=== PATIENT | male | born 1940 | race Caucasian/White ===

== ENCOUNTER 2018-02-18 10:19 | Emergency (ER) | payer OTHER ==
[~2018-02-18] VITALS: Ht 162.6 cm; Wt 83.0 kg
[~2018-02-18 10:19] MED LIST: AMLODIPINE BESY PO; AUGMENTIN 875 M1 TAB PO; CARVEDILOL12.5 M1 PO; CARVEDILOL12.5 MG PO; CEFUROXIME250 M1 PO; COREG12.5 M1 PO; DOFETILIDE500 MCG PO; ELIQUIS2.5 M1 PO; ELIQUIS5 M1 PO; ELIQUIS5 MG PO; EXFORGE 10-3201 EACH PO; FUROSEMIDE20 M1 PO; PREDNISONE10 M2 PO; SPIRIVA 18 MCG18 MCG INH; SPIRIVA18 MCG INH; VYTORIN 10-401 EACH PO
[2018-02-18] MEDS ORDERED: ANORO ELLIPTA1 EACH (12:42)
--- NOTE | 2018-02-18 15:11 | CT SCAN REPORT ---
EXAMINATION: CT ABDOMEN AND PELVIS WITHOUT CONTRAST CLINICAL INFORMATION: Left lower back pain radiating to the left groin. COMPARISON: 11/07/2015. TECHNIQUE: Multidetector volumetric imaging was performed from the superior aspect of the liver through the pubic symphysis. Sagittal and coronal reformatted images were obtained on the technologist's workstation. DLP: 584 mGy-cm FINDINGS: LUNG BASES: Centrilobular emphysema seen at the lung bases. Partial visualization of cardiac pacer leads. LIVER, GALLBLADDER, AND BILIARY TREE: The liver is normal in size, shape, and attenuation. No focal hepatic lesion or biliary ductal dilatation is present. The gallbladder is unremarkable with no evidence of radiopaque gallstones, gallbladder wall thickening, or obvious pericholecystic inflammatory changes. PANCREAS: Unremarkable. SPLEEN: Unremarkable. ADRENAL GLANDS: Nodular thickening of both adrenal glands. 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 KIDNEYS AND URETERS: The kidneys are normal in size, shape, and attenuation. No hydronephrosis or hydroureter. No perinephric stranding. There are multiple bilateral renal cysts which appear exophytic. 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 There is a left lower pole 0.5 cm nonobstructing renal calculus, 11 cm from the posterior axillary line. BLADDER: Unremarkable. GASTROINTESTINAL TRACT: The stomach is decompressed. The small bowel is normal in caliber. No obstruction. Colonic diverticulosis without diverticulitis. No wall thickening or inflammation. ABDOMINAL WALL: Small fat-containing inguinal hernias bilaterally. LYMPH NODES: Normal. VASCULAR: Normal caliber aorta. Moderate atherosclerotic calcifications. PELVIC VISCERA: The prostate and seminal vesicles are unremarkable. OSSEOUS STRUCTURES: No acute or suspicious osseous abnormality. Multilevel degenerative changes of the spine. Disc space narrowing greatest at L5-S1. Vacuum disc phenomenon at L3-L4 and L5-S1. Multilevel endplate osteophytes present Degenerative changes of the right hip. IMPRESSION: No acute findings of the abdomen or pelvis. No hydronephrosis. Nonobstructing left renal calculus. Multiple bilateral renal cysts. Colonic diverticulosis without diverticulitis. Moderate degenerative changes of the lumbar spine.
[2018-02-18 15:13] VITALS: BP 138/84
[2018-02-18] MEDS ORDERED: BACLOFEN10 M1 PO (16:26)
[2018-02-18] MEDS ORDERED: ACETAMINOPHEN-1 EAC3 PO (16:26)
--- NOTE | 2018-02-18 16:27 | ED NECK/BACK PAIN COMPLAINT ---
History of Present Illness General Chief Complaint: General Adult Stated Complaint: L GROIN PAIN Source: patient, family, old records Exam Limitations: no limitations Vital Signs & Intake/Output Vital Signs & Intake/Output Vital Signs Date Time Temp Pulse Resp B/P B/P Pulse O2 O2 Flow FiO2 Mean Ox Delivery Rate 02/18 1513 97.5 71 18 138/84 96 Room Air 02/18 1354 98.0 65 18 131/76 95 Room Air 02/18 1025 97.5 65 15 149/89 95 Room Air Room Air Allergies Coded Allergies: No Known Allergies (02/18/18) Reconcile Medications Acetaminophen With Codeine (Acetaminophen-Cod #3 Tablet) 300 MG-30 MG TABLET 1 -2 TAB PO Q6P PRN severe pain Amlodipine/Valsartan (Exforge 10-320 MG Tablet) 10 MG-320 MG TABLET 1 TAB PO DAILY HTN (Reported) Apixaban (Eliquis) 2.5 MG TABLET 1 TAB PO AM A.FIB (Reported) Apixaban (Eliquis) 5 MG TABLET 1 TAB PO QPM A.FIB (Reported) Baclofen 10 MG TABLET 1 TAB PO TIDPRN PRN muscle spasm/strain Carvedilol (Coreg) 12.5 MG TABLET 1 TAB PO BID BID (Reported) Dofetilide 500 MCG CAPSULE 1 CAP PO BID VT (Reported) Ezetimibe/Simvastatin (Vytorin 10-40 MG Tablet) 10 MG-40 MG TABLET 1 TAB PO DAILY Heart health (Reported) Furosemide 20 MG TABLET 1 TAB PO DAILY CHF (Reported) Umeclidinium Brm/Vilanterol Tr (Anoro Ellipta 62.5-25 Mcg INH) 62.5 MCG-25 MCG/ ACTUATION BLST.W.DEV COPD (Reported) Triage Note: PT TO ED FOR C/C OF L GROIN PAIN THAT RADIATES DOWN LEFT LEG THAT STARTED YESTERDAY WITH SOME NUMBNESS IN LEG WELL. REPORTS HE HAS A BAKERS CYST BEHIND LEFT KNEE X YEARS AND IT INTERMITTENTLY GETS BETTER AND WORSE. DENIES G/U S/S. TOOK 2 MOTRIN BEFORE ARRIVAL. Triage Nurses Notes Reviewed? yes Onset: Just prior to arrival Duration: hour(s):, constant, continues in ED Timing: recent history Quality/Severity: severe, radiation, sharpness Location: lumbar spine, paraspinous muscles Radiation: buttocks, upper legs Context: turning/bending Method of Injury: twisted Loss of Consciousness: no loss of consciousness Modifying Factors: immobilization, pain medication, rest Associated Symptoms: muscle spasm, trouble walking HPI: Several hours prior to admission patient awoke trying to get out of bed developing left low back pain radiating to his inguinal area upper like. The pain is sharp constant worse with movement turning bending. Reports having neck pain before but never this bad with radiation. He denies fever chills nausea vomiting diarrhea abdominal pain chest pain shortness breath headache dysuria rash bleeding change in motor sensory function change in bowel bladder habit. Past History Travel History Traveled to [place] past 21 day No Medical History Any Pertinent Medical History? see below for history Neurological: NONE EENT: NONE Cardiovascular: AFIB, PACER/DEFIB LCW Respiratory: bronchitis, COPD, emphysema Gastrointestinal: NONE Hepatic: NONE Renal: NONE Musculoskeletal: osteoarthritis Psychiatric: NONE Endocrine: NONE Blood Disorders: NONE Cancer(s): POSSIBLE LUNG CA? 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 No Review of Systems Review of Systems Constitutional: Reports: no symptoms. Eyes: Reports: no symptoms. Ears, Nose, Throat, Mouth: Reports: no symptoms. Respiratory: Reports: no symptoms. Cardiovascular: Reports: no symptoms. Gastrointestinal/Abdominal: Reports: no symptoms. Musculoskeletal: Reports: see HPI, back pain, muscle stiffness. Skin: Reports: no symptoms. Neurological/Psychological: Reports: no symptoms. All Other Systems: Reviewed and Negative Physical Exam Physical Exam General Appearance: well developed/nourished, alert, awake, anxious, moderate distress, obese Head: atraumatic, normal appearance Eyes: Bilateral: normal appearance, PERRL, EOMI. Ears, Nose, Throat, Mouth: hearing grossly normal, moist mucous membrane Neck: normal inspection, supple, full range of motion, normal alignment Respiratory: normal breath sounds, chest non-tender, no respiratory distress, quiet respiration, lungs clear Cardiovascular: regular rate/rhythm, normal peripheral pulses, norml femoral pulses equa Peripheral Pulses: 4+ carotid (R), 4+ carotid (L) Gastrointestinal: normal bowel sounds, soft, non-tender, no organomegaly Back: normal inspection, normal range of motion, no vertebral tenderness Extremities: non-tender, normal range of motion, no ligament instability Straight Leg Raising: Right: Pain at ____ degrees (10). Left: Pain at ____ degrees (10). Sensory: Medial Le: L4R, L4L. Top of Foot: 2: L5R, L5L. Sole of Foot: 2: SIR, MICHELLE. Motor: Deficit L4 Right: No Deficit L4 Left: No Deficit L5 Right: No Deficit S1 Right: No Deficit S1 Right: No DTR: Deficit L4 Left: No Deficit L4 Right: No Deficit S1 Left: No Deficit S1 Right: No Patellar: 3: L4 Right, L4 Left. Neurologic/Psych: no motor/sensory deficits, awake, alert, oriented x 3, normal gait (with walker), normal mood/affect, dog boarder II-XII nml as tested Skin: intact, normal color, warm/dry Core Measures CVA/TIA Diagnosis: No Progress Differential Diagnosis: cauda equina syn, herniated disc, myofascial strain, pyelo/UTI, T/L spine injury Plan of Care: Orders Procedure Date/time Status URINALYSIS 02/18 1226 Complete Laboratory Tests 02/18/18 1251: Urine Color YEL, Urine Clarity HAZY H, Urine pH 6.0, Ur Specific [place] 1.025, Urine Protein 100 H, Urine Ketones NEG, Urine Nitrite NEG, Urine Bilirubin NEG, Urine Urobilinogen 0.2, Ur Leukocyte Esterase NEG, Ur Microscopic SEDIMENT EXAMINED, Urine RBC 1-3, Urine WBC 1-3 H, Ur Epithelial Cells OCCAS, Urine Hemoglobin TRACE-INTACT H, Urine Glucose NEG Diagnostic Imaging: Viewed by Me: CT Scan. Discussed w/RAD: CT Scan. Radiology Impression: 1. No acute findings along the urinary tracts. No hydronephrosis or perinephric edema. A 0.3 cm nonobstructing calculus is present within the upper pole of the left kidney. 2. Atherosclerotic disease of the abdominal aorta without aneurysm. 3. Diffuse osteoporosis. The severity of the L2 compression fracture is unchanged compared to 03/08/2016. A new compression fracture of the L1 vertebral body exhibits approximately 35% anterior height reduction. The lumbar vertebral alignment is maintained. 4. Colonic diverticulosis without diverticulitis. 5. Centrilobular emphysema within the visualized lung bases. Departure Departure Time of Disposition: 1622 Disposition: HOME OR SELF CARE Condition: Stable Clinical Impression Primary Impression: Sciatica associated with disorder of lumbar spine Referrals: Zahria SANDERS,Albert Pierre (PCP/Family) Departure Forms: Customer Survey General Discharge Information Prescriptions: Current Visit Scripts Acetaminophen With Codeine (Acetaminophen-Cod #3 Tablet) 1-2 TAB PO Q6P PRN severe pain #30 TAB Baclofen 1 TAB PO TIDPRN PRN muscle spasm/strain #30 TAB
== END 2018-02-18 16:32 ==
LOC: ERH 10:19
DX: M51.17 Intervertebral disc disorders with radiculopathy, lumbosacral region (principal); M54.2 Cervicalgia
CPT/HCPCS: 74176; 81001